=== PATIENT | female | born 1995 | race Caucasian/White ===

== ENCOUNTER 2021-01-08 16:02 | Emergency (ER) | payer MEDICAID, SELFPAY ==
[2021-01-08 16:03] VITALS: BP 138/85; PULSE 103; RESP 20; TEMP 35.9; O2SAT 99; BMI 26.2
--- NOTE | 2021-01-08 16:24 | US_ITS ---
INDICATION: vaginal bleeding EXAMINATION: US OB Transvaginal TECHNIQUE: Transvaginal pelvic ultrasound was performed. Grayscale, spectral waveform, and color flow Doppler evaluation of the adnexa. COMPARISON: None. FINDINGS: UTERUS: Measures 10.3 x 7.4 x 4.3 cm. There is a heterogeneous globular area in the lower uterine segment measuring approximately 2 x 4.1 cm. The endometrium measures 3 mm in thickness. RIGHT OVARY: Measures 2.4 x 1.7 x 1 cm. Normal. LEFT OVARY: Measures 2.6 x 1.7 x 1.2 cm. Normal. FREE FLUID: None. INTRAUTERINE GESTATIONAL SAC(s) (size/shape): Ill-defined small 1.1 cm structure near the lower uterine segment could represent a gestational sac, however there is no pole visualized. No ectopic visualized. US/Transvaginal w/Preg US IMPRESSION: Possible incomplete miscarriage. Recommend short term follow-up ultrasound. Electronically Signed: Cassius Zavala MD at 17:33 EDT Tel , Service support ,
--- NOTE | 2021-01-08 16:26 | ED.DCSUM_ITS ---
- ER Visit Summary Date of Service: 01/08/21 Chief Complaint: [Vaginal bleeding/miscarriage] History of Present Illness: The patient is a 25 F [presents to the emergency department with complaint of vaginal bleeding. Patient states that she had a menstrual period on September 282019. Patient became and had a ultrasound about 3-1/2 weeks ago that showed the fetus stopped developing a 9 weeks and had no heartbeat although she was supposed to be at that point 11 weeks. Patient was told she would have a miscarriage. Patient states that she started bleeding heavily 3 days ago and was seen at [facility] where she had blood work and the ED physician discussed case with her CLERICAL METHODS ANALYST and patient was discharged to home with a prescription for a few [place] for pain. Patient states that the pain is actually better today and rates it about a 4 5 out of 10 but she continues to bleed and is going through about 4 pads per day. She believes she passed some tissue 3 days ago and may be small amount of tissue yesterday. She denies any fevers. She denies urinary symptoms. Patient is G1, P0. No other medical history.] Physical Examination: HEENT-PERRLA, EOMI. Cranial nerves II through XII grossly intact. TMs clear. Mucous membranes moist. No adenopathy. Cardiovascular-regular rate and rhythm without murmur or ectopy Lungs-clear to auscultation, chest wall stable without crepitus or subcu emphysema Abdomen-normoactive bowel sounds, soft, nontender, no rebound or rigidity, no peritoneal signs. Extremities-intact ?4, normal range of motion, normal pulses, atraumatic [] Test Results: [CBC with differential obtained showed a white count 9.0, hemoglobin 12, hematocrit 35, platelets were 199. hCG was 696. Blood type is O+. Pelvic ultrasound obtained read by radiology as possible incomplete miscarriage and recommend short-term follow-up.] Emergency Department Course and Treatment: [IV line established on arrival. Patient discussed with CLERICAL METHODS ANALYST on-call Dr. Mccain who evaluated the patient in the department. At this point they will continue with expectant management.] Treatment Plan: [Patient to follow-up with CLERICAL METHODS ANALYST as instructed. She is advised to return if persistent heavy bleeding, worsening pain, or condition should worsen anyway.] Disposition: [Discharged home in stable condition] Impression: [Spontaneous -incomplete] This note was generated with [employer] dictation software. It may contain incorrect words, spelling, and punctuation that were not noted in review of the chart prior to signing ED Disposition - Plan for ED Patient: Referrals: NOT,DEFINED [NON-STAFF] -
[2021-01-08] MEDS: 0.9% Normal Saline 1,000 ML 150 ML IV (16:41)
[2021-01-08 16:47] LABS: Absolute Lymphocyte Count 1.12 X10^3/uL (0.83-4.51); Absolute Neutrophil Count 7.1 X10^3/uL (2.0-7.7); Basophil# 0.03 X10^3/uL; Basophil% 0.3 % (0-1); Eosinophil# 0.05 X10^3/uL; Eosinophils% 0.6 % (0-5); Hematocrit 35.2 % (37-47); Hemoglobin 12.3 g/dL (12.0-15.0); Lymphocyte # 1.12 X10^3/ul (4.0); Lymphocyte % 12.5 % (19-41); Mean Corp Hgb Conc 34.9 g/dL (32-36); Mean Corpuscular Hgb 31.4 pg (27.0-32.0); Mean Corpuscular Volume 89.8 fL (81-99); Mean Platelet Vol. 10.6 fl (6.2-12.0); Monocyte# 0.63 X10^3/uL; NRBC Flagged by Analyzer 0 % (0-5); Neutrophil # 7.14 X10^3/uL (2.7-7.7); Neutrophil % 79.4 % (47-70); Platelet Count 199 K/mm3 (150-450); RBC Distribution Width CV 11.7 % (11.6-14.6); RBC Distribution Width SD 37.7 fl (35.1-43.9); Red Blood Count 3.92 M/mm3 (4.2-5.4)
[2021-01-08 17:05] LABS: hCG Titer Quant., Serum 696 mIU/mL (1-3)
[2021-01-08 17:25] LABS: Bacteria 0 SEEN /hpf (None Seen)
[2021-01-08 17:27] LABS: Color, Urine Yellow (Yellow); Glucose, Dipstick Normal (Normal); Ketone-Dipstick 50 mg/dl (Negative); Leukocyte Esterase-Dipstick 500 /ul (Negative); Nitrite-Dipstick Negative (Negative); Occult Blood-Urine 250 /ul (Negative); Protein-Dipstick 15 mg/dl (Negative); Urine Clarity Sl. Cloudy (Clear); Urine Urobilinogen 4 mg/dl (Normal)
[2021-01-08 17:41] LABS: Urine Bilirubin Dipstick 1 mg/dL (Negative)
[2021-01-08 17:44] LABS: Mucous, Urine 2+ /hpf (<or=2+); Red Blood Cells-Urine 25-50 SEEN /hpf (0-5); Squamous Epithelial Cells - UA 0-5 SEEN /hpf (5-10); White Blood Cells 0-5 SEEN /hpf (0-5)
[2021-01-08 17:45] LABS: Trichomonas 0-5 SEEN /hpf (None Seen)
--- NOTE | 2021-01-08 18:16 | ED.DEP ---
ED Disposition - Plan for ED Patient: Instructions: ED MISCARRIAGE Incomplete Referrals: NOT,DEFINED [NON-STAFF] - Jennifer Mccain MD [STAFF PHYSICIAN] - 5-7 Days
[2021-01-08 18:24] VITALS: PULSE 76; RESP 16; O2SAT 99
--- NOTE | 2021-01-08 20:17 | CON.PCM_ITS ---
Problem List (1) Incomplete Status: Acute Reason for Consult Date of Consultation: 01/08/21 Reason for Consultation: Incomplete History of Present Illness: The patient is a 25 year old F with a known miscarriage who presents for bleeding and cramping. She was diagnosed with a miscarriage about 2 weeks ago and elected for expectant management at that time. Follows with a BOILER OR ENGINE OPERATOR in [place]. She began having significant cramping and bleeding starting Monday evening with passage of large clots at home. She was seen in the ER in [place] after this and was told that she was miscarrying and again elected to continue with expectant management. She presents today with ongoing bleeding and cramping. Reports bleeding has significantly decreased and is now like a normal period. Reports that her primary concern is pain. Reports that pain is not relieved with Tylenol. Pain starts in her suprapubic region and wraps around her back. Reports that pain is about a 5 out of 10. She strongly desires to avoid surgery for management of her miscarriage if at all possible. Denies fevers, chills, foul-smelling discharge. Past Medical History Allergies Penicillins [PCN] Allergy (Verified 01/08/21 16:03) NEEDS FOLLOW-UP Home Medications: Ambulatory Orders Medication Instructions Recorded Hydrocodone Bitart/Apap 5-325 1 tablet PO Q6H PRN PRN 7 Days #5 01/08/21 [[place] 5MG-325MG] tab Ibuprofen [Motrin] 800 mg PO Q8H PRN PRN #60 tablet 01/08/21 VENEER TRIMMER History: No pertinent VENEER TRIMMER history Smoking Status: Current every day smoker Review of Systems Constitutional: Denies: Chills, Fever Cardiovascular: Denies: Chest Pain Respiratory: Denies: Shortness of Breath Gastrointestinal: Reports: Abdominal Pain, Vomiting. Denies: Nausea Genitourinary: Denies: Dysuria Gynecological: Reports: Vaginal bleeding. Denies: Vaginal discharge, Vaginal itching Subjective: Laboratory Tests 01/08/21 01/08/21 01/08/21 Range/Units 17:20 16:35 16:35 WBC (4.4-11.0) K/mm3 RBC (4.2-5.4) M/mm3 Hgb (12.0-15.0) g/dL Hct (37-47) % MCV (81-99) fL MCH (27.0-32.0) pg MCHC (32-36) g/dL RDW Std Deviation (35.1-43.9) fl RDW Coeff of Efraín (11.6-14.6) % Plt Count (150-450) K/mm3 MPV (6.2-12.0) fl Immature Gran % (Auto) (0.0-0.9) % Neut % (Auto) (47-70) % Lymph % (Auto) (19-41) % [place] % (Auto) (0-10) % Eos % (Auto) (0-5) % Baso % (Auto) (0-1) % Absolute Neuts (auto) (2.0-7.7) X10^3/uL Absolute Lymphs (auto) (0.83-4.51) X10^3/uL Nucleated RBC % (0-5) % HCG, Quant 696 H (1-3) mIU/mL Urine Color Yellow (Yellow) Urine Clarity Sl. Cloudy (Clear) Urine pH 5.0 (5.0 - 8.0) Ur Specific [place] 1.020 (1.002-1.030) Urine Protein 15 H (Negative) mg/dl Urine Glucose (UA) Normal (Normal) mg/dl Urine Ketones 50 H (Negative) mg/dl Urine Occult Blood 250 H (Negative) /ul Urine Nitrite Negative (Negative) Urine Bilirubin 1 H (Negative) mg/dL Urine Urobilinogen 4 H (Normal) mg/dl Ur Leukocyte Esterase 500 H (Negative) /ul Urine RBC 25-50 SEEN (0-5) /hpf Urine WBC 0-5 SEEN (0-5) /hpf Ur Squamous Epith Cells 0-5 SEEN (5-10) /hpf Urine Bacteria 0 SEEN (None Seen) /hpf Urine Mucus 2+ (<or=2+) /hpf Urine Trichomonas 0-5 SEEN (None Seen) /hpf Blood Type O POSITIVE 01/08/21 Range/Units 16:35 WBC 9.0 (4.4-11.0) K/mm3 RBC 3.92 L (4.2-5.4) M/mm3 Hgb 12.3 (12.0-15.0) g/dL Hct 35.2 L (37-47) % MCV 89.8 (81-99) fL MCH 31.4 (27.0-32.0) pg MCHC 34.9 (32-36) g/dL RDW Std Deviation 37.7 (35.1-43.9) fl RDW Coeff of Efraín 11.7 (11.6-14.6) % Plt Count 199 (150-450) K/mm3 MPV 10.6 (6.2-12.0) fl Immature Gran % (Auto) 0.200 (0.0-0.9) % Neut % (Auto) 79.4 H (47-70) % Lymph % (Auto) 12.5 L (19-41) % [place] % (Auto) 7.0 (0-10) % Eos % (Auto) 0.6 (0-5) % Baso % (Auto) 0.3 (0-1) % Absolute Neuts (auto) 7.1 (2.0-7.7) X10^3/uL Absolute Lymphs (auto) 1.12 (0.83-4.51) X10^3/uL Nucleated RBC % 0 (0-5) % HCG, Quant (1-3) mIU/mL Urine Color (Yellow) Urine Clarity (Clear) Urine pH (5.0 - 8.0) Ur Specific [place] (1.002-1.030) Urine Protein (Negative) mg/dl Urine Glucose (UA) (Normal) mg/dl Urine Ketones (Negative) mg/dl Urine Occult Blood (Negative) /ul Urine Nitrite (Negative) Urine Bilirubin (Negative) mg/dL Urine Urobilinogen (Normal) mg/dl Ur Leukocyte Esterase (Negative) /ul Urine RBC (0-5) /hpf Urine WBC (0-5) /hpf Ur Squamous Epith Cells (5-10) /hpf Urine Bacteria (None Seen) /hpf Urine Mucus (<or=2+) /hpf Urine Trichomonas (None Seen) /hpf Blood Type - Physical Exam Vitals/I&O's: Vital Signs Temp Pulse Resp BP Pulse Ox 96.6 F L 76 16 138/85 H 99 01/08/21 16:03 01/08/21 18:24 01/08/21 18:24 01/08/21 16:03 01/08/21 18:24 Oxygen Delivery Method Room Air Weight: 143 lb 1.28 oz Body Mass Index (BMI) 26.2 General: Alert, Oriented x3, Cooperative, No apparent distress, Well developed, Well nourished HEENT: Atraumatic, PERRLA, EOMI, Normocephalic Oral: Moist Mucosa Neck: Supple Lungs: Normal air movement Cardiovascular: Regular rate Abdomen: Soft, Non Tender, Non-Distended Extremities: No edema Neurological: Cranial nerves II-XII grossly intact, Neuro grossly intact Psych/Mental Status: Normal Affect, Appropriate Laboratory Results 01/08/21 16:35: WBC 9.0, RBC 3.92 L, Hgb 12.3, Hct 35.2 L, MCV 89.8, MCH 31.4, MCHC 34.9, RDW Std Deviation 37.7, RDW Coeff of Efraín 11.7, Plt Count 199, MPV 10.6, Immature Gran % (Auto) 0.200, Neut % (Auto) 79.4 H, Lymph % (Auto) 12.5 L, [place] % (Auto) 7.0, Eos % (Auto) 0.6, Baso % (Auto) 0.3, Absolute Neuts (auto) 7.1, Absolute Lymphs (auto) 1.12, Nucleated RBC % 0 01/08/21 16:35: HCG, Quant 696 H 01/08/21 16:35: Blood Type O POSITIVE 01/08/21 17:20: Urine Color Yellow, Urine Clarity Sl. Cloudy, Urine pH 5.0, Ur Specific [place] 1.020, Urine Protein 15 H, Urine Glucose (UA) Normal, Urine Ketones 50 H, Urine Occult Blood 250 H, Urine Nitrite Negative, Urine Bilirubin 1 H, Urine Urobilinogen 4 H, Ur Leukocyte Esterase 500 H, Urine RBC 25-50 SEEN, Urine WBC 0-5 SEEN, Ur Squamous Epith Cells 0-5 SEEN, Urine Bacteria 0 SEEN, Urine Mucus 2+, Urine Trichomonas 0-5 SEEN Assessment/Plan All Active Problems Incomplete (Acute) 25-year-old female G1, P0 presents with vaginal bleeding in the setting of a incomplete . Incomplete -Ultrasound in ER shows possible retained products. -Hemoglobin stable. -Vital signs stable. -Management options discussed with patient including expectant management, medical management with Cytotec, and surgical management. Patient desires continued expectant management at this time. Return precautions reviewed including normal amount of bleeding. Patient counseled that she will continue to have cramping until she is completely passed everything. Discussed that I would recommend taking scheduled ibuprofen while she is completing her miscarriage. Prescription provided for ibuprofen. I did also provide 5 additional tablets of [place] for if pain becomes more severe. Reviewed bleeding precautions. Discussed that with a miscarriage, abnormal bleeding would be 2 pads an hour for 2 hours in a row. Patient voices understanding. All questions answered. -Patient given information to follow-up as an outpatient in my office [facility] Codes - Visit Charges Office Visit/Consults: 88245 OV L3 New
== END 2021-01-08 18:25 | disposition home or self-care (01) ==
LOC: ED 17:44
PROVIDERS: Emergency Provider Emergency Medicine
DX: O03.4 Incomplete spontaneous abortion without complication (principal); F17.200 Nicotine dependence, unspecified, uncomplicated
CPT/HCPCS: 76817; 81001; 84702; 85025; 86900; 86901; 99283; J7030; A4216

== ENCOUNTER 2022-03-09 21:53 | Emergency (ER) | payer MEDICAID, SELFPAY ==
[2022-03-09 21:54] VITALS: BP 135/75; PULSE 92; RESP 15; TEMP 37.1; O2SAT 100; BMI 26.5
--- NOTE | 2022-03-09 22:15 | US_ITS ---
EXAM: US OB. 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 A single live intrauterine of 6 weeks and 4 days is identified in the right horn. heart rate is 137 bpm. A normal yolk sac is identified. The ovaries are normal is size bilaterally with flow. A 1.6 cm corpus luteal cyst is in the right ovary. Mild free pelvic fluid. 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 Single live intrauterine of 6 weeks and 4 days in the right horn. Electronically Signed: Miah Villanueva MD at 0:24 EDT , US/Transvaginal w/Preg US IMPRESSION: undefined
--- NOTE | 2022-03-09 22:16 | ED.VIS.FEGU ---
HPI HPI - Female History of Present Illness Chief Complaint: Vag Bld, Preg Narrative Narrative: Patient is a G2, P0 at approximately 6 weeks gestation by home test. She presents with cramping that she has had for a week intermittently, had vaginal bleeding/spotting. She states it is light pink. She denies any dysuria or hematuria. No significant past medical history. She is taking vitamins. She is a smoker. She states that she has a high risk . She denies any chest pain or lightheadedness. No other symptoms. She is afraid that she may be miscarrying. She states her 2 previous menses prior to the 10th of last month were light, as well as her menses on the 10th of last month. PFSH PFSH Medical History no medical history Home Medications ibuprofen 800 mg PO Q8H PRN PRN #60 tablet 01/08/21 [Rx Last Taken Unknown] Allergy/AdvReac Type Severity Reaction Status Date / Time Penicillins [PCN] Allergy NEEDS Verified 03/09/22 21:54 FOLLOW-UP Surgical History no surgical history Social History Smoking Status: Current every day smoker tobacco type: cigarettes ROS ROS ED ROS Narrative Constitutional: No fever, no chills. HEENT: No sore throat. No neck pain. No loss of vision. No rhinorrhea. Cardiovascular: No chest pain. No palpitations. No pedal edema. Respiratory: No cough, no shortness of breath. Abdominal: No abdominal pain. No nausea. No vomiting. Genitourinary: No dysuria. No hematuria. Vaginal and pelvic cramping. Light pink spotting. Musculoskeletal: No myalgias. No arthralgias. Neurologic: No headaches. No dizziness. No lightheadedness. Skin: No rash. No change in color. Psychiatric: No depression. No anxiety. EXAM Physical Exam Narrative Exam Narrative: Afebrile. Vital signs noted. HEENT: Normocephalic. Atraumatic. PERRL, EOMI. Neck soft and supple. No point tenderness or step off. Cardiovascular: Regular rate and rhythm. No murmurs, rubs, or gallops appreciated. Respiratory: No tachypnea. Lungs clear to auscultation bilaterally. Gastrointestinal: Abdomen soft, nontender, with normoactive bowel sounds. No rebound or guarding. Genitourinary: Chaperoned examination reveals no evidence of dried blood externally. Speculum examination reveals os to be closed, no evidence of acute hemorrhage. There is small amount of discharge that is white to yellow. No cervical motion tenderness. Neurological: Awake. Alert. Nonfocal, nonlateralizing. Skin: No rash. Normal color. No pallor. Musculoskeletal: No pedal edema. Full range of motion extremities. Const Vital Signs: 03/09/22 21:54 Temperature 98.7 F Temperature Source Temporal Pulse Rate 92 Respiratory Rate 15 Blood Pressure 135/75 H Blood Pressure Mean 95 Pulse Ox 100 Oxygen Delivery Method Room Air MDM MDM MDM Narrative Medical decision making narrative: Comprehensive work-up was pursued. CBC shows normal white count of 9.6, hemoglobin normal at 14.7. Platelet count normal at 255. Urinalysis is negative for ketones and negative for nitrites with 100 leukocyte esterase. There are 5-10 WBCs and 1+ bacteria noted. This was sent for culture. As she has allergies to penicillin, she was given fosfomycin 3 g orally as a one-time dose for her asymptomatic bacteriuria. Blood type is O+. hCG quant elevated at 31,610. Her ultrasound results are currently pending. I do not think that this is a threatened as she had no blood or evidence of blood in the vaginal vault or coming from the os. At this point in time, she will be signed out to the oncoming physician to check the ultrasound results and make final disposition on the patient which I anticipate would be discharged home to follow-up with her WATERWORKS EMPLOYEE. Disposition is pending ultrasound results. She is in stable condition. Lab Data Attestation: I reviewed the patient's lab results. Labs: Laboratory Results - last 24 hr 03/09/22 03/09/22 03/09/22 22:20 22:29 22:29 WBC 9.6 RBC 4.62 Hgb 14.7 Hct 41.1 MCV 89.0 MCH 31.8 MCHC 35.8 RDW Std Deviation 39.0 RDW Coeff of Efraín 12.0 Plt Count 255 MPV 10.3 Immature Gran % (Auto) 0.400 Neut % (Auto) 62.1 Lymph % (Auto) 26.7 [place] % (Auto) 9.8 Eos % (Auto) 0.7 Baso % (Auto) 0.3 Absolute Neuts (auto) 6.0 Absolute Lymphs (auto) 2.57 Nucleated RBC % 0 HCG, Quant 12993 H Urine Color Yellow Urine Clarity Clear Urine pH 6.0 Ur Specific [place] 1.020 Urine Protein Negative Urine Glucose (UA) Normal Urine Ketones Negative Urine Occult Blood Negative Urine Nitrite Negative Urine Bilirubin Negative Urine Urobilinogen Normal Ur Leukocyte Esterase 100 H Urine RBC 0 SEEN Urine WBC 5-10 SEEN Ur Squamous Epith Cells 0-5 SEEN Urine Bacteria 1+ Urine Mucus 0 SEEN Blood Type 03/09/22 22:29 WBC RBC Hgb Hct MCV MCH MCHC RDW Std Deviation RDW Coeff of Efraín Plt Count MPV Immature Gran % (Auto) Neut % (Auto) Lymph % (Auto) [place] % (Auto) Eos % (Auto) Baso % (Auto) Absolute Neuts (auto) Absolute Lymphs (auto) Nucleated RBC % HCG, Quant Urine Color Urine Clarity Urine pH Ur Specific [place] Urine Protein Urine Glucose (UA) Urine Ketones Urine Occult Blood Urine Nitrite Urine Bilirubin Urine Urobilinogen Ur Leukocyte Esterase Urine RBC Urine WBC Ur Squamous Epith Cells Urine Bacteria Urine Mucus Blood Type O POSITIVE Discharge Plan Triage Chief Complaint: Vag Bld, Preg ED Provider: Narciso Dyson Dx/Rx/DC Orders Clinical Impression: , Pelvic cramping in antepartum period, Asymptomatic bacteriuria during Instructions: ED Possible Miscarriage ..., ED Established ... Prescriptions: No Action ibuprofen 800 MG tablet 800 mg PO Q8H PRN PRN (Reason: Pain Score 1-5) Qty: 60 RF: 1 Primary Care Provider: Care Physician,No Primary Referrals: Care Physician,No Primary [Primary Care Provider] - Activity Restrictions/Additional Instructions: Follow-up with your WATERWORKS EMPLOYEE as soon as possible. Call the office tomorrow. Continue your vitamins. Stop smoking. Disposition Disposition: Home, Self Care
[2022-03-09 22:28] LABS: Mucous, Urine 0 SEEN /hpf (<or=2+); Red Blood Cells-Urine 0 SEEN /hpf (0-5)
[2022-03-09 22:39] LABS: Color, Urine Yellow (Yellow); Glucose, Dipstick Normal (Normal); Ketone-Dipstick Negative (Negative); Leukocyte Esterase-Dipstick 100 /ul (Negative); Nitrite-Dipstick Negative (Negative); Occult Blood-Urine Negative /ul (Negative); Protein-Dipstick Negative (Negative); Urine Bilirubin Dipstick Negative (Negative); Urine Clarity Clear (Clear); Urine Urobilinogen Normal (Normal)
[2022-03-09 22:39] LABS: Absolute Lymphocyte Count 2.57 X10^3/uL (0.83-4.51); Basophil# 0.03 X10^3/uL; Basophil% 0.3 % (0-1); Eosinophil# 0.07 X10^3/uL; Eosinophils% 0.7 % (0-5); Hematocrit 41.1 % (37-47); Hemoglobin 14.7 g/dL (12.0-15.0); Lymphocyte # 2.57 X10^3/ul (0.83-4.51); Lymphocyte % 26.7 % (19-41); Mean Corp Hgb Conc 35.8 g/dL (32-36); Mean Corpuscular Hgb 31.8 pg (27.0-32.0); Mean Platelet Vol. 10.3 fl (6.2-12.0); Monocyte# 0.94 X10^3/uL; Monocyte% 9.8 % (0-10); NRBC Flagged by Analyzer 0 % (0-5); Neutrophil # 5.97 X10^3/uL (2.7-7.7); Neutrophil % 62.1 % (47-70); Platelet Count 255 K/mm3 (150-450); Red Blood Count 4.62 M/mm3 (4.2-5.4); White Blood Count 9.6 K/mm3 (4.4-11.0)
[2022-03-09] MEDS: Ondansetron 4 MG/2 ML Vial IV (22:58)
[2022-03-09 23:01] LABS: Bacteria 1+ /hpf (None Seen); Squamous Epithelial Cells - UA 0-5 SEEN /hpf (5-10); White Blood Cells 5-10 SEEN /hpf (0-5)
[2022-03-09 23:20] LABS: hCG Titer Quant., Serum 31610 mIU/mL (1-3)
[2022-03-10] MEDS: FOSFOMYCIN TROMETHAMINE 3 GM PACKET PO (00:11)
[2022-03-10 00:34] VITALS: BP 123/74; PULSE 81; RESP 18; O2SAT 98
== END 2022-03-10 00:34 | disposition home or self-care (01) ==
PROVIDERS: Emergency Provider Emergency Medicine; Visit Provider Emergency Medicine
DX: O26.891 Other specified pregnancy related conditions, first trimester (principal); O99.331 Smoking (tobacco) complicating pregnancy, first trimester; F17.210 Nicotine dependence, cigarettes, uncomplicated; R82.71 Bacteriuria; R10.2 Pelvic and perineal pain; Z3A.01 Less than 8 weeks gestation of pregnancy
CPT/HCPCS: 87491; 87591; 76817; 81001; 84702; 85025; 86900; 86901; 87086; 87210; 96374; 99284; A4216; J2405